=== PATIENT | male | born 1990 | race Caucasian/White ===

== ENCOUNTER 2018-06-12 09:56 | Emergency (ER) | payer SELFPAY ==
[2018-06-12 10:13] VITALS: BP 144/79
--- NOTE | 2018-06-12 10:35 | UC ---
Back Pain HPI - HPI Summary HPI Summary: 1 wk ago lifted heavy objected at work. 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 he stated at the end of the day he felt mid to lower back pain which worsens w/ certain movements. feels worsening pain over the past week. he has continued to work through this issue. denies tingling/numbness in arms or back. - History of Current Complaint Chief Complaint: UCBackPain Stated Complaint: BACK INJURY Time Seen by Provider: 06/12/18 09:57 Hx Obtained From: Patient Onset/Duration: Gradual Onset Timing: Intermittent Pain Intensity: 6 Pain Scale Used: 0-10 Numeric Character: Sharp, Spasmodic Aggravating Factor(s): Movement, Lifting, Bending Alleviating Factor(s): Rest Associated Signs And Symptoms: Negative: Bruising, Weakness, Numbness - Allergies/Home Medications Allergies/Adverse Reactions: Allergies Allergy/AdvReac Type Severity Reaction Status Date / Time No Known Allergies Allergy Verified 06/12/18 10:14 PMH/Surg Hx/FS Hx/Imm Hx Previously Healthy: Yes Other History Of: Negative For: HIV, Hepatitis B, Hepatitis C, Anticoagulant Therapy - Surgical History Surgical History: None - Family History Known Family History: Positive: Hypertension Negative: Cardiac Disease - Social History Alcohol Use: Occasionally Alcohol Amount: only on weekends Substance Use Type: None Smoking Status (MU): Light Every Day Tobacco Smoker Type: Cigarettes Amount Used/How Often: < 1/2 ppd Have You Smoked in the Last Year: Yes Review of Systems All Other Systems Reviewed And Are Negative: Yes Constitutional: Positive: Negative Skin: Negative: Rash Respiratory: Positive: Negative Cardiovascular: Positive: Negative Musculoskeletal: Positive: Arthralgia - mid back pain. Negative: Decreased ROM , Edema, Myalgia Neurological: Negative: Weakness, Paresthesia, Numbness Physical Exam Triage Information Reviewed: Yes Appearance: Well-Appearing Vital Signs: Initial Vital Signs Temp 98 F 06/12/18 10:10 Pulse 76 06/12/18 10:10 Resp 16 06/12/18 10:10 BP 144/79 06/12/18 10:10 Pulse Ox 100 06/12/18 10:10 Vital Signs Reviewed: Yes Respiratory Exam: Normal Cardiovascular Exam: Normal Musculoskeletal: Positive: Strength Intact - entire back, ROM Intact - UE and back., Other: - Mild pain w/ resistance testing in UE but good ROM. Nontender spine. Skin: Positive: Other - no bruising. Back Pain Course/Dx - Course Course Of Treatment: Lifting injury at work which affects mid back. There is spasmodic pain in mid back area so plan is to give a few days of muscle relaxant as well as anti-inflammatory meds. Discussed appropriate lifting techniques and hopefully some days off of work will help w/ healing. No neuro deficits on exam. vitals good. But if worsening should see pcp for further eval. - Differential Dx/Diagnosis Differential Diagnosis/HQI/PQRI: Herniated Disc, Strain, Sprain Provider Diagnosis: Back spasm Discharge - Sign-Out/Discharge Documenting (check all that apply): Patient Departure All imaging exams completed and their final reports reviewed: No Studies - Discharge Plan Condition: Good Disposition: HOME Prescriptions: Cyclobenzaprine (NF) [Cyclobenzaprine 5 MG (NF)] 5 mg PO TID PRN 5 Days #15 tab PRN Reason: Spasms - Back Ibuprofen [Ibu] 600 mg PO TID PRN 30 Days #90 tablet PRN Reason: Pain Patient Education Materials: Muscle Spasm (ED) Forms: *Work Release Referrals: No Primary Care Phys,NOPCP [Primary Care Provider] - Additional Instructions: please rest and use proper lifting techniques - Billing Disposition and Condition Condition: GOOD Disposition: Home
== END 2018-06-12 10:46 | disposition home or self-care (01) ==
LOC: UCEAST 09:56
DX: M62.830 Muscle spasm of back (principal); F17.210 Nicotine dependence, cigarettes, uncomplicated
CPT/HCPCS: 99212; G0463

== ENCOUNTER 2019-06-26 12:08 | Emergency (ER) | payer BC ==
[2019-06-26 13:05] VITALS: BP 114/74
[2019-06-26 13:10] LABS: Influenza B Molecular POSITIVE (Negative)
--- NOTE | 2019-06-26 13:53 | UC ---
FLU HPI - HPI Summary HPI Summary: 3 DAYS OF SORE THROAT, COUGH, SUBJECTIVE FEVER, CHILLS, NASAL CONGESTION, POSTNASAL DRAINAGE, MYALGIAS, FATIGUE. NO KNOWN COVID-19 EXPOSURE OR TRAVEL OUTSIDE OF [facility]. - History of Current Complaint Chief Complaint: UCRespiratory Stated Complaint: COUGH,FEVER Time Seen by Provider: 06/26/19 12:44 Hx Obtained From: Patient Onset/Duration: Gradual Onset, Lasting Days, Still Present Severity Currently: Moderate Severity Initially: Moderate Pain Intensity: 7 Pain Scale Used: 0-10 Numeric Associated Signs & Symptoms: Positive: Fever, Myalgia, Cough, Sore Throat, Nasal Congestion, Headache. Negative: Vomiting, Diarrhea - Allergy/Home Medications Allergies/Adverse Reactions: Allergies Allergy/AdvReac Type Severity Reaction Status Date / Time No Known Allergies Allergy Verified 06/26/19 12:24 Home Medications: Home Medications GuaiFENesin DM 100 mg/10 mg [Robitussin DM 100 mg/10 mg in 5 ml] 5 ml PO Q6H PRN 06/26/19 [History Confirmed 06/26/19] PMH/Surg Hx/FS Hx/Imm Hx Previously Healthy: Yes Other History Of: Negative For: HIV, Hepatitis B, Hepatitis C, Anticoagulant Therapy - Surgical History Surgical History: None - Family History Known Family History: Positive: Hypertension Negative: Cardiac Disease - Social History Alcohol Use: None Alcohol Amount: only on weekends Substance Use Type: None Smoking Status (MU): Heavy Every Day Tobacco Smoker Type: Cigarettes Amount Used/How Often: ~1/2 PPD Length of Time of Smoking/Using Tobacco: Since Age 16 Have You Smoked in the Last Year: Yes Review of Systems All Other Systems Reviewed And Are Negative: Yes Constitutional: Positive: Fever, Chills, Fatigue ENT: Positive: Sore Throat, Nasal Discharge. Negative: Ear Ache Respiratory: Positive: Cough Cardiovascular: Positive: Negative Gastrointestinal: Positive: Negative Musculoskeletal: Positive: Myalgia Neurological/Mental Status: Positive: Headache Physical Exam Triage Information Reviewed: Yes Appearance: No Pain Distress, Well-Nourished, Ill-Appearing - FATIGUED Vital Signs: Initial Vital Signs Temp 99.2 F 06/26/19 12:18 Pulse 108 06/26/19 12:18 Resp 18 06/26/19 12:18 BP 114/74 03/20/20 12:18 Pulse Ox 99 06/26/19 12:18 Laboratory Tests 06/26/19 06/26/19 13:05 13:07 Influenza B (Rapid) Positive H Group A Strep Rapid Negative Vital Signs Reviewed: Yes Eyes: Positive: Conjunctiva Clear ENT: Positive: Hearing grossly normal, Pharynx normal, TMs normal Neck: Positive: Supple, Nontender, No Lymphadenopathy Respiratory Exam: Normal Cardiovascular: Positive: Brisk Capillary Refill Abdomen Description: Positive: Nontender, Soft Musculoskeletal: Positive: No Edema Neurological: Positive: Alert Psychological: Positive: Age Appropriate Behavior Skin: Negative: Rashes Flu Course/Dx - Course Course Of Treatment: SWAB POSITIVE FOR INFLUENZA B. PATIENT IS OUTSIDE THE WINDOW FOR T[place]. ENCOURAGED REST, HYDRATION, OTC MEDS NEEDED. NOTE FOR WORK PROVIDED. FOLLOW -UP IF NEEDED. COVID-19 TESTING NOT DONE. - Differential Dx/Diagnosis Provider Diagnosis: Influenza B Discharge ED - Sign-Out/Discharge Documenting (check all that apply): Patient Departure All imaging exams completed and their final reports reviewed: No Studies - Discharge Plan Condition: Stable Disposition: HOME Patient Education Materials: Influenza (ED) Forms: *Work Release Referrals: Lisa Hutchison PA [Primary Care Provider] - If Needed Additional Instructions: SWAB POSITIVE FOR INFLUENZA. YOU ARE OUTSIDE THE WINDOW FOR T[place]. OTC MEDS NEEDED FOR FEVER, BODY ACHES. STAY WELL HYDRATED AND RESTED. SEEK FOLLOW-UP IF YOU ARE NOT IMPROVING EXPECTED. - Billing Disposition and Condition Condition: STABLE Disposition: Home
== END 2019-06-26 13:54 | disposition home or self-care (01) ==
LOC: UCCORT 12:08
DX: J10.1 Influenza due to other identified influenza virus with other respiratory manifestations (principal); F17.210 Nicotine dependence, cigarettes, uncomplicated
CPT/HCPCS: 87651; 99211; G0463